=== PATIENT | male | born 1960 | race Caucasian/White ===

== ENCOUNTER 2017-06-15 10:29 | Inpatient (IN) | payer OTHER ==
[~2017-06-15] VITALS: Ht 182.9 cm; Wt 93.2 kg
[2017-06-15] MEDS ORDERED: SODIUM CHLORIDE 0.9% 1,000 ML IV ONE (12:00)
[2017-06-15] MEDS ORDERED: ENOXAPARIN SOD 100 MG/1 ML SYRINGE SC ONE (12:00)
[2017-06-15 12:11] LABS: Basophils # (auto) 0.1 uL; Basophils % (auto) 0.7 % (0.0-2.0); Eosinophils # (auto) 0.2 uL; Eosinophils % (auto) 2.4 % (0.0-7.0); Hematocrit 36.2 % (41.0-53.0); Hemoglobin 12.5 g/dL (13.5-17.5); Lymphocytes # (auto) 1.1 uL; Lymphocytes % (auto) 13.7 % (10.0-50.0); Mean Corpuscular Hemoglobin 30.4 pg (28.0-32.0); Mean Corpuscular Hgb Conc. 34.5 g/dL (32.0-36.0); Mean Platelet Volume 7.5 fL (6.9-10.8); Monocytes # (auto) 0.9 uL; Monocytes % (auto) 11.8 % (0.0-12.0); Neutrophils # (auto) 5.7 uL; Neutrophils % (auto) 71.4 % (37.0-80.0); Platelet Count (auto) 189 10^3/uL (140-450); Red Cell Distribution Width 13.7 % (11.8-14.3); White Blood Cell 7.9 10^3/uL (4.4-10.8)
[2017-06-15 12:53] LABS: Albumin 3.8 g/dL (3.4-5.0); BUN/Creatinine Ratio 16.8; Bilirubin, Total 0.7 mg/dL (0.2-1.0); Calcium 8.6 mg/dL (8.5-10.1); Potassium 3.7 mmol/L (3.5-5.1); Total Protein 7.4 g/dL (6.4-8.2)
[2017-06-15 13:05] LABS: INR 0.97 (0.9-1.15); Prothrombin Time 10.6 sec (9.37-12.3)
[2017-06-15] MEDS ORDERED: HYDROmorphone HCL 2 MG/ML VL IV PRN (13:30)
[2017-06-15] MEDS ORDERED: TEMAZEPAM 15 MG CAP PO PRN (13:30)
[2017-06-15] MEDS ORDERED: HYDROcodone-ACET 5/325MG TAB PO PRN (13:30)
[2017-06-15] MEDS ORDERED: PROMETHAZINE HCL 25 MG/ML 1ML IV PRN (13:30)
[2017-06-15] MEDS ORDERED: LORazepam 0.5 MG TAB PO PRN (13:30)
[2017-06-15] MEDS ORDERED: MORPHINE SULF INJ 2 MG/ML SYRINGE 1ML IV PRN (13:30)
[2017-06-15] MEDS ORDERED: NITROGLYCERIN 0.4 MG SL TAB SL PRN (13:30)
[2017-06-15] MEDS ORDERED: LACTULOSE 20Gm/30ML SOLN PO PRN (13:30)
[2017-06-15] MEDS ORDERED: cefTRIAXone 1GM/50ML D5W 50 ML IV ONE (13:45)
[2017-06-15] MEDS ORDERED: ALBUTEROL SULF 2.5 MG/0.5ML(0.5%) NEB SOLN NEB PRN (13:45)
[2017-06-15] MEDS ORDERED: PANTOPRAZOLE 40 MG TAB PO ONE (13:45)
[2017-06-15] MEDS ORDERED: APIXABAN 5 MG TAB PO ONE (13:45)
[2017-06-15] MEDS ORDERED: IOHEXOL 350 MG/ML 100ML IJ ONE (14:00)
[2017-06-15] MEDS ORDERED: AZITHROMYCIN 500MG/ 250ML 250 ML IV ONE (14:00)
[2017-06-15 14:40] VITALS: BP 143/96
[2017-06-15 14:43] VITALS: BP 147/106
[2017-06-15] MEDS ORDERED: LISI-646 PO (16:17)
[2017-06-15] MEDS ORDERED: HYDR12.56 PO (16:18)
[2017-06-15] MEDS ORDERED: ATE50T PO (16:18)
[2017-06-15] MEDS ORDERED: IBUP800T24 PO (16:18)
[2017-06-15 17:00] VITALS: BP 143/96
[2017-06-15] MEDS: ALBUTEROL SULF 2.5 MG/0.5ML(0.5%) NEB SOLN NEB SCH (19:27)
[2017-06-15] MEDS ORDERED: APIXABAN 5 MG TAB PO SCH (22:00)
[2017-06-15 22:21] VITALS: BP 144/93
[2017-06-15] MEDS: APIXABAN 5 MG TAB PO SCH (22:38)
[2017-06-16] MEDS: ALBUTEROL SULF 2.5 MG/0.5ML(0.5%) NEB SOLN NEB SCH ×4 (00:20→18:19)
[2017-06-16 04:33] VITALS: BP 149/88
[2017-06-16] MEDS ORDERED: SODIUM CHLORIDE 0.9 % NEB SOLN 3ML NEB ONE ×2 (06:02→11:10)
[2017-06-16 06:33] LABS: Basophils # (auto) 0 uL; Basophils % (auto) 0.5 % (0.0-2.0); Eosinophils # (auto) 0.3 uL; Eosinophils % (auto) 3.8 % (0.0-7.0); Hematocrit 37.2 % (41.0-53.0); Hemoglobin 12.7 g/dL (13.5-17.5); Lymphocytes # (auto) 1.2 uL; Mean Corpuscular Hemoglobin 30.6 pg (28.0-32.0); Mean Corpuscular Hgb Conc. 34.2 g/dL (32.0-36.0); Mean Corpuscular Volume 89.6 fL (80.0-100.0); Mean Platelet Volume 7.9 fL (6.9-10.8); Monocytes # (auto) 0.7 uL; Monocytes % (auto) 10.5 % (0.0-12.0); Neutrophils # (auto) 4.9 uL; Neutrophils % (auto) 68.2 % (37.0-80.0); Platelet Count (auto) 187 10^3/uL (140-450); Red Cell Distribution Width 13.7 % (11.8-14.3); White Blood Cell 7.1 10^3/uL (4.4-10.8)
[2017-06-16 07:04] LABS: Albumin 3.4 g/dL (3.4-5.0); BUN/Creatinine Ratio 15.5; Bilirubin, Total 0.8 mg/dL (0.2-1.0); Calcium 8.7 mg/dL (8.5-10.1); Potassium 4.1 mmol/L (3.5-5.1); Total Protein 7.2 g/dL (6.4-8.2)
[2017-06-16] MEDS ORDERED: AZITHROMYCIN 500MG/ 250ML 250 ML IV SCH (10:00)
[2017-06-16 10:11] VITALS: BP 144/91
[2017-06-16] MEDS: cefTRIAXone 1GM/50ML D5W 50 ML IV SCH (11:29)
[2017-06-16] MEDS: PANTOPRAZOLE 40 MG TAB PO SCH (11:29)
[2017-06-16] MEDS: APIXABAN 5 MG TAB PO SCH ×2 (11:29→21:41)
[2017-06-16 12:01] VITALS: BP 155/92
[2017-06-16] MEDS: ACETAMINOPHEN 500 MG TAB PO PRN (12:03)
[2017-06-16 16:47] VITALS: BP 153/95
[2017-06-16 22:31] VITALS: BP 158/95
[2017-06-17] MEDS: ALBUTEROL SULF 2.5 MG/0.5ML(0.5%) NEB SOLN NEB SCH ×4 (00:12→18:42)
[2017-06-17 04:48] VITALS: BP 138/105
[2017-06-17 08:36] LABS: Urine Bilirubin Negative (Negative); Urine Blood 2+ /uL (Negative); Urine Color Yellow (Yellow); Urine Glucose Normal (Normal); Urine Ketone Negative (Negative); Urine Nitrite Negative (Negative); Urine RBC 147 /hpf (0 - 3); Urine pH 6.5 (5.0-8.0)
[2017-06-17 09:39] VITALS: BP 158/109
[2017-06-17] MEDS: cefTRIAXone 1GM/50ML D5W 50 ML IV SCH (09:47)
[2017-06-17] MEDS: APIXABAN 5 MG TAB PO SCH ×2 (09:47→22:35)
[2017-06-17] MEDS: PANTOPRAZOLE 40 MG TAB PO SCH (09:48)
[2017-06-17] MEDS ORDERED: LISINOPRIL 10 MG TAB PO ONE (10:30)
[2017-06-17] MEDS: ENOXAPARIN SOD 80 MG/0.8ML SYRINGE SC SCH ×2 (11:01→22:35)
[2017-06-17 12:43] VITALS: BP 142/105
[2017-06-17 16:40] VITALS: BP 152/106
[2017-06-17 22:00] VITALS: BP 146/101
[2017-06-17 23:15] LABS: Protein S Antigen Free 146 % (57-157); Proten S Antigen Total 85 % (60-150)
[2017-06-18] VITALS (7 sets, daily range): BP systolic 134–148; BP diastolic 89–99
[2017-06-18] MEDS: ALBUTEROL SULF 2.5 MG/0.5ML(0.5%) NEB SOLN NEB SCH ×4 (00:31→18:32)
[2017-06-18] MEDS: APIXABAN 5 MG TAB PO SCH ×2 (10:13→22:03)
[2017-06-18] MEDS: PANTOPRAZOLE 40 MG TAB PO SCH (10:13)
[2017-06-18] MEDS: ENOXAPARIN SOD 80 MG/0.8ML SYRINGE SC SCH ×2 (10:13→22:03)
[2017-06-18] MEDS: LISINOPRIL 10 MG TAB PO SCH (10:14)
[2017-06-18] MEDS: ACETAMINOPHEN 500 MG TAB PO PRN (10:27)
[2017-06-19 05:50] VITALS: BP 140/91
[2017-06-19] MEDS: ALBUTEROL SULF 2.5 MG/0.5ML(0.5%) NEB SOLN NEB SCH ×3 (06:26→11:30)
[2017-06-19 09:00] VITALS: BP 160/96
[2017-06-19] MEDS: PANTOPRAZOLE 40 MG TAB PO SCH (09:42)
[2017-06-19] MEDS: ENOXAPARIN SOD 80 MG/0.8ML SYRINGE SC SCH (09:42)
[2017-06-19] MEDS: APIXABAN 5 MG TAB PO SCH (09:42)
[2017-06-19] MEDS: LISINOPRIL 10 MG TAB PO SCH (09:43)
[2017-06-22] MEDS ORDERED: APIXABAN 5 MG TAB PO SCH (22:00)
[2017-06-23] MEDS ORDERED: APIXABAN 5 MG TAB PO SCH (10:00)
== END 2017-06-19 13:08 | disposition home or self-care (01) | DRG 299 ==
LOC: ER 10:49 → TELE-CENTR 10:50
PROVIDERS: ADMIT Internal Medicine; ATTEND Internal Medicine
DX: I82.411 Acute embolism and thrombosis of right femoral vein (principal); I26.99 Other pulmonary embolism without acute cor pulmonale; I82.431 Acute embolism and thrombosis of right popliteal vein; K59.00 Constipation, unspecified; I10 Essential (primary) hypertension; Z79.01 Long term (current) use of anticoagulants; Z80.1 Family history of malignant neoplasm of trachea, bronchus and lung; Z86.711 Personal history of pulmonary embolism; Z87.81 Personal history of (healed) traumatic fracture
CPT/HCPCS: 36415; 71010; 71275; 80053; 80061; 81001; 81241; 85025; 85302; 85305; 85306; 85610; 85613; 85670; 85705; 85732; 93971; 94640; 96372; 96374; 96375; J0696